=== PATIENT | female | born 1980 | race Caucasian/White ===

== ENCOUNTER 2021-12-06 16:34 | Emergency (ER) | payer OTHER, SELFPAY ==
--- OUTSIDE RECORDS SUMMARY | 2021-12-06 16:38 | XMS REPORT | Continuity of Care Document ---
:1980 Author Organization [facility] t Address [address] [place] [address] Care Team Providers Name Role Phone Unavailable Unavailable Unavailable Problems This patient has no known problems. Allergies, Adverse Reactions, Alerts Allergy Allergy Status Severity Reaction(s) Onset Inactive Treating Comm ents Source Name Type Date Date Clinician PEN[place]ILL Drug Active Unknown-Cmnt 2018-0 Un betsy INS Class 3-13 ity of 00:00: [address] Medications This patient has no known medications. Procedures This patient has no known procedures. Encounters Start End Encounter Admission Attending Care Care Encounter Source Date/Time Date/Time Type Type Clinicians Facility Department ID 2020-10-30 2020-10-30 Outpatient [facility] [id number] -20 [facility] 17:30:00 17:30:00 [id number] ity of [facility] Results This patient has no known results.
[2021-12-06 17:19] LABS: Urine Blood 3+ (Negative); Urine Glucose Negative (Negative); Urine Protein Negative (Negative); Urine Specific Gravity 1.025 (1.005-1.030); Urine pH 6.5 (5.0-7.0)
[2021-12-06 17:38] LABS: Urine Specific Gravity/Preg 1.025 (1.005-1.030)
[2021-12-06 18:11] LABS: Absolute Lymphocytes (CBC) 2.2 K/uL (0.7-4.9); Lymphocytes % 37.7 % (15.3-44.8); MCV 97.3 fL (80-100); MPV 8.8 fL (7.6-11.3); RBC Red Blood Cell Count 4.21 M/uL (3.86-4.86)
[2021-12-06 18:24] LABS: Potassium 3.4 mmol/L (3.5-5.1)
--- NOTE | 2021-12-06 18:53 | RAD REPORT ---
EXAM DESCRIPTION: US - Transvaginal OB - 12/06/2021 6:39 pm CLINICAL HISTORY: VAGINAL BLEEDING Pelvic pain COMPARISON: <Comparisons> FINDINGS: A single gestational sac is seen within the uterus. The shape of the sac is within normal limits for gestational age. Within the sac is small yolk sac. The maternal adnexa and right ovary are within normal limits. Normal Doppler blood flow was demonstra marty to the right ovary. Left ovary was obscured by bowel gas. IMPRESSION: Findings compatible with early IUP are present. Recommend follow-up pelvic sonogram 10-12 days. Serial HCG level measurements may also be considered.
[2021-12-06] MEDS ORDERED: POTASSIUM 25 MEQ EFFERV TAB ONE (19:24)
--- NOTE | 2021-12-06 19:31 | EDPHYS ---
Physician Documentation [facility] Name: Lissy Becerra Age: 41 yrs Sex: Female : 1980 Arrival Date: 12/06/2021 Time: 16:36 Bed 14 Private MD: ED Physician Darron Whitfield HPI: 12/06 17:30 This 41 yrs old Female presents to ER via Ambulatory with complaints of Vaginal cp Bleeding, + Preg <12wks. 17:30 The patient presents to the emergency department with vaginal bleeding, described as cp spotting, with no clots. course: care: none, Leakage of Fluid: none appreciated, Ultrasound: the patient has not had an ultrasound. Previous pregnancies: in previous pregnancies patient has had no complications. Associated signs and symptoms: Pertinent negatives: abdominal pain, dysuria, fever, ruptured membranes, vomiting. [employer]: 16:57 LMP 10/24/2021 jh5 17:30 3, Full Term 2, Living 2, LMP 10/22/2021, Verified, EDC 07/29/2022, cp Gestational age from LMP: 6 weeks 4 days Historical: - Allergies: 16:57 No Known Allergies; jh5 - PMHx: 16:57 Anxiety; 5 - Immunization history:: Adult Immunizations up to date. - Social history:: Smoking status: Patient denies any tobacco usage or history of. ROS: 17:35 Constitutional: Negative for body aches, chills, fever, poor PO intake. cp 17:35 Eyes: Negative for injury, pain, redness, and discharge. cp 17:35 Cardiovascular: Negative for chest pain, edema, palpitations. 17:35 Respiratory: Negative for cough, shortness of breath, wheezing. 17:35 Abdomen/GI: Negative for abdominal pain, nausea, vomiting, and diarrhea. 17:35 : Positive for vaginal bleeding, Negative for urinary symptoms, flank pain. 17:35 Neuro: Negative for dizziness, headache, syncope, weakness. 17:35 All other systems are negative. Exam: 17:40 Constitutional: The patient appears in no acute distress, alert, awake, non-toxic, well cp developed, well nourished, anxious. 17:40 Head/Face: Normocephalic, atraumatic. cp 17:40 Eyes: Periorbital structures: appear normal, Conjunctiva: normal, no exudate, no injection, Sclera: no appreciated abnormality, Lids and lashes: appear normal, bilaterally. 17:40 ENT: External ear(s): are unremarkable, Nose: is normal, Mouth: Lips: moist, Oral mucosa: moist, Posterior pharynx: Airway: no evidence of obstruction, patent. 17:40 Chest/axilla: Inspection: normal. 17:40 Cardiovascular: Rate: normal, Rhythm: regular. 17:40 Respiratory: the patient does not display signs of respiratory distress, Respirations: normal, no use of accessory muscles, no retractions, labored breathing, is not present, Breath sounds: are clear throughout, no decreased breath sounds, no stridor, no wheezing. 17:40 Abdomen/GI: Inspection: abdomen appears normal, Palpation: abdomen is soft and non-tender, in all quadrants. 17:40 Back: pain, is absent, ROM is normal. Vital Signs: 16:56 BP 126 / 111; Pulse 90; Resp 20; Temp 98.8; Pulse Ox 99% ; Weight 68.04 kg; Height 5 jh5 ft. 1 in. (154.94 cm); Pain 0/10; 17:10 BP 118 / 95; Pulse 85; ko1 19:40 BP 123 / 64; Pulse 73; Pulse Ox 100% on R/A; vc1 16:56 Body Mass Index 28.34 (68.04 kg, 154.94 cm) jh5 MDM: 17:05 Patient medically screened. 18:00 Differential diagnosis: STD, ectopic , placenta previa. 19:30 Data reviewed: vital signs, nurses notes, lab test result(s), radiologic studies, cp ultrasound. 19:30 Counseling: I had a detailed discussion with the patient and/or guardian regarding: the cp historical points, exam findings, and any diagnostic results supporting the discharge/admit diagnosis, lab results, radiology results, the need for outpatient follow up, an OB/Gyne specialist, to return to the emergency department if symptoms worsen or persist or if there are any questions or concerns that arise at home. ED course: VSS. Discussed results of labs and US showing IUP. Will discharge to home for continued monitoring and f/u with OB. 12/06 17:19 Order name: Abo/rh Typing cp 12/06 17:19 Order name: Basic Metabolic Panel; Complete Time: 19:13 cp 12/06 19:13 Interpretation: Normal except: K 3.4. cp 12/06 17:19 Order name: CBC with Diff; Complete Time: 19:13 cp 12/06 17:19 Order name: Quantitative Hcg; Complete Time: 19:13 cp 12/06 17:19 Order name: Urine Dipstick-Ancillary; Complete Time: 19:13 EDMS 12/06 19:13 Interpretation: Normal except: UBLD 3+; UESTR Trace. cp 12/06 17:37 Order name: Urine --Ancillary (enter results) em1 12/06 17:19 Order name: US Transvaginal Ob; Complete Time: 19:13 cp 12/06 17:19 Order name: IV Saline Lock; Complete Time: 17:33 cp 12/06 17:19 Order name: Labs collected and sent; Complete Time: 17:33 cp 12/06 17:19 Order name: NPO; Complete Time: 17:33 cp 12/06 17:19 Order name: Urine Dipstick-Ancillary (obtain specimen); Complete Time: 17:26 cp 12/06 17:19 Order name: Urine Test (obtain specimen); Complete Time: 17:26 cp 12/06 17:39 Order name: Urine --Ancillary; Complete Time: 19:13 EDMS Administered Medications: 19:31 Drug: Potassium Effervescent Tablet 25 mEq Route: PO; vc1 19:39 Follow up: Response: No adverse reaction vc1 Point of Care Testing: Urine : 19:40 hCG Reading: Positive; Control Reading: Positive; vc1 Disposition Summary: 12/06/21 19:30 Discharge Ordered Location: Home cp Problem: new cp Symptoms: have improved cp Condition: Stable cp Diagnosis - Threatened cp Followup: cp - With: Private Physician - When: 1 week - Reason: Recheck today's complaints Discharge Instructions: - Discharge Summary Sheet cp - Care cp - Threatened Miscarriage cp - Vaginal Bleeding During , First Trimester cp - Activity Restriction During cp - Form - Excuse from Work, School, or Physical Activity cp Forms: - Medication Reconciliation Form cp - Thank You Letter cp - Antibiotic Education cp - Prescription Opioid Use cp Prescriptions: - 147-iron gluc-folic 13 mg iron- 1 mg Oral tablet - take 1 tablet by ORAL route once daily; 60 tablet; Refills: 0, Product cp Selection Permitted Addendum: 12/10/2021 21:07 Co-signature as Attending Physician, Darron Whitfield MD. r n Signatures: Dispatcher [employer] Darron Brooke MD MD rn Page, Corey, PA PA cp Rees, Jessica RN RN jh5 Rhonda Bishop RN RN vc1
--- NOTE | 2021-12-06 19:31 | ER ---
Nurse's Notes [facility] Name: Lissy Becerra Age: 41 yrs Sex: Female : 1980 Arrival Date: 12/06/2021 Time: 16:36 Bed 14 Private MD: Diagnosis: Threatened Presentation: 12/06 16:56 Chief complaint: Patient states: started bleeding today, no clots. Coronavirus screen: [facility] Vaccine status: Patient reports receiving the 2nd dose of the covid vaccine. Client denies travel out of the [place] in the last 14 days. Ebola Screen: Patient negative for fever greater than or equal to 101.5 degrees Fahrenheit, and additional compatible Ebola Virus Disease symptoms Patient denies exposure to infectious person. Patient denies travel to an Ebola-affected area in the 21 days before illness onset. Initial Sepsis Screen: Does the patient meet any 2 criteria? No. Patient's initial sepsis screen is negative. Does the patient have a suspected source of infection? No. Patient's initial sepsis screen is negative. Risk Assessment: Do you want to hurt yourself or someone else? Patient reports no desire to harm self or others. Onset of symptoms was December 06, 2021. 16:56 Method Of Arrival: Ambulatory [facility] 16:56 Acuity: RANJAN 3 5 Triage Assessment: 16:57 General: Appears in no apparent distress. uncomfortable, slender, well groomed, well jh5 developed, Behavior is calm, cooperative, appropriate for age, anxious, crying. Pain: Denies pain. : Reports vaginal bleeding that is bright red. [employer]OL[employer]ER: 16:57 LMP 10/24/2021 [facility] 17:30 3, Full Term 2, Living 2, LMP 10/22/2021, Verified, EDC 07/29/2022, cp Gestational age from LMP: 6 weeks 4 days Historical: - Allergies: 16:57 No Known Allergies; [facility] - PMHx: 16:57 Anxiety; [facility] - Immunization history:: Adult Immunizations up to date. - Social history:: Smoking status: Patient denies any tobacco usage or history of. Screenin:10 Abuse screen: Denies threats or abuse. Denies injuries from another. Nutritional ko1 screening: No deficits noted. Tuberculosis screening: No symptoms or risk factors identified. Fall Risk None identified. Assessment: 17:10 Obstetrical Assessment: General assessment: awake and alert, skin warm and dry, ko1 respirations even and unlabored, Rupture of membranes Patient reports. General: Appears in no apparent distress. comfortable, Behavior is calm, cooperative, appropriate for age, anxious, crying. Pain: Denies pain. Neuro: No deficits noted. Cardiovascular: No deficits noted. Respiratory: No deficits noted. GI: No deficits noted. : Reports vaginal bleeding that is. EENT: No deficits noted. Derm: No deficits noted. Musculoskeletal: No deficits noted. Vital Signs: 16:56 BP 126 / 111; Pulse 90; Resp 20; Temp 98.8; Pulse Ox 99% ; Weight 68.04 kg; Height 5 5 ft. 1 in. (154.94 cm); Pain 0/10; 17:10 BP 118 / 95; Pulse 85; ko1 19:40 BP 123 / 64; Pulse 73; Pulse Ox 100% on R/A; vc1 16:56 Body Mass Index 28.34 (68.04 kg, 154.94 cm) [facility] Vitals: 19:42 Heart Tones too early in . vc1 ED Course: 16:36 Patient arrived in ED. rg4 16:48 Norbert Gonzales PA is PHCP. cp 16:48 Darron Whitfeild MD is Attending Physician. cp 16:57 Triage completed. 5 16:57 Arm band placed on right wrist. 5 17:03 Diana Caldwell, RN is Primary Nurse. ko1 17:10 Patient has correct armband on for positive identification. Placed in gown. Bed in low ko1 position. Call light in reach. Side rails up X 1. 17:10 Inserted saline lock: 22 gauge in right antecubital area, using aseptic technique. ko1 Blood collected. 17:33 Abo/rh Typing Sent. ko1 17:33 Basic Metabolic Panel Sent. ko1 17:33 CBC with Diff Sent. ko1 17:33 Quantitative Hcg Sent. ko1 17:54 Urine --Ancillary (enter results) Sent. ko1 17:54 Basic Metabolic Panel Sent. ko1 17:54 CBC with Diff Sent. ko1 17:54 Quantitative Hcg Sent. ko1 18:47 US Transvaginal Ob In Process Unspecified. EDMS 19:41 No provider procedures requiring assistance completed. IV discontinued, intact, vc1 bleeding controlled, No redness/swelling at site. Pressure dressing applied. Administered Medications: 19:31 Drug: Potassium Effervescent Tablet 25 mEq Route: PO; vc1 19:39 Follow up: Response: No adverse reaction vc1 Medication: 19:42 VIS not applicable for this client. vc1 Point of Care Testing: Urine : 19:40 hCG Reading: Positive; Control Reading: Positive; vc1 Outcome: 19:30 Discharge ordered by MD. schaefer 19:41 Discharged to home ambulatory. vc1 19:41 Condition: good 19:41 Discharge instructions given to patient, Instructed on discharge instructions, follow up and referral plans. medication usage, Demonstrated understanding of instructions, follow-up care, medications, Prescriptions given X 1. 19:43 Patient left the ED. vc1 Signatures: Dispatcher [employer] EDMS Norbert Gonzales PA PA cp Garcia, Rubi rg4 Jojo Key RN RN jh5 Rhonda Bishop RN RN vc1 Diana Caldwell RN RN ko1
[2021-12-06 19:51] VITALS: TEMP 98.8
[2021-12-06 19:53] VITALS: BP 123/64; O2SAT 100
== END 2021-12-06 19:43 | disposition home or self-care (01) ==
LOC: ER 16:34
DX: O20.0 Threatened abortion (principal); F41.9 Anxiety disorder, unspecified
CPT/HCPCS: 36415; 76817; 80048; 81003; 81025; 84702; 85025; 86900; 86901; 99284